=== PATIENT | female | born 1985 | race Caucasian/White ===

== ENCOUNTER 2018-12-01 19:45 | Emergency (ER) | payer SELFPAY ==
--- NOTE | 2018-12-01 21:59 | RADIOLOGY REPORT (SQ) ---
EXAM DESCRIPTION: XR ANKLE 3 OR MORE VIEWS COMPLETED DATE/TME: 12/01/2018 21:10 CLINICAL HISTORY: 33 years Female ,fell down steps two weeks ago with pain laterally and in the region of the Achilles COMPARISON: None. TECHNIQUE: Right ankle, 3 view FINDINGS: No acute fractures or dislocations are identified. No osseous destructive lesions. No ankle joint effusion noted. IMPRESSION: No acute fracture is identified.
[2018-12-01] MEDS ORDERED: HYDROCODONE/ACETAMINOPHEN 5-325 MG (6 TAB/ER DISP) PO PRN (22:05)
--- NOTE | 2018-12-01 22:10 | ER Document Report ---
ED General - General Chief Complaint: Ankle Injury Stated Complaint: RIGHT ANKLE PAIN Time Seen by Provider: 12/01/18 21:54 Mode of Arrival: Ambulatory Information source: Patient TRAVEL OUTSIDE OF THE [place] IN LAST 30 DAYS: No - HPI Patient complains to provider of: Right ankle injury Onset: Just prior to arrival Onset/Duration: Sudden Quality of pain: Sharp Severity: Severe Pain Level: 4 Associated symptoms: None Exacerbated by: Movement, Walking, Other - Weightbearing Relieved by: Denies Similar symptoms previously: No Recently seen / treated by doctor: No Notes: 33-year-old female visiting from out of town here for chief complaint right ankle injury. She is walking up or down some stairs with an infant in her arms and lost her balance and fell down some steps. Complains of sharp pain felt in the lateral aspect of her right ankle. Able to bear weight with a moderate amount of discomfort. No other injuries - Related Data Allergies/Adverse Reactions: No Known Allergies Allergy (Verified 12/01/18 21:51) Past Medical History - General Information source: Patient - Social History Smoking Status: Current Every Day Smoker Chew tobacco use (# tins/day): No Frequency of alcohol use: Occasional Drug Abuse: None Family History: Reviewed & Not Pertinent Patient has suicidal ideation: No Patient has homicidal ideation: No Renal/ Medical History: Denies: Hx Peritoneal Dialysis Review of Systems - Review of Systems Notes: Constitutional: No fevers. No chills. EENT: No eye redness. No eye pain. No ear pain. No sore throat. Cardiovascular: No chest pain. No palpitations. Respiratory: No cough. No shortness of breath. No respiratory distress. Gastrointestinal: No abdominal pain. No nausea, vomiting, or diarrhea. Genitourinary: Atraumatic. No lesions. No pain. No discharge. Musculoskeletal: Positive for right ankle pain Skin: No rash or lesions. Lymphatic: No swollen lymph nodes. Neurologic: No headache. No syncope. Psychiatric: No suicidal or homicidal ideation. Physical Exam - Vital signs Vitals: Temp Pulse Resp BP Pulse Ox 98.6 F 101 H 20 112/65 99 12/01/18 19:52 12/01/18 19:52 12/01/18 19:52 12/01/18 19:52 12/01/18 19:52 - Notes Notes: General: Well-developed, well-nourished. In no acute distress. Non-toxic appearing. Cardiac: Well-perfused. Regular rate and rhythm. No murmurs, rubs, or gallops. Pulmonary: No respiratory distress. No cyanosis. Bilateral lung fiels are clear to auscultation. Abdominal: Non-distended. Non-rigid. Bowels sounds are present in all four quadrants. No guarding or rebound. HEENT: Head is atraumatic. Conjunctivae not reddened. No tearing. PERRL. EOMI. Orbits atraumatic. No periorbital swelling or erythema. Oropharynx is without erythema, swelling, or exudates. Neck: Supple. No adenopathy. No meningismus. Dermatologic: Warm with good turgor. No rash. Atraumatic. Chest: Atraumatic. No chest wall tenderness to palpation. Musculoskeletal: Right lower extremity evaluated. Obvious soft tissue swelling right ankle lateral malleolar surface. Tender to palpate there. No bony deformity. Distal neurovascular exam is intact. Full range of motion in the foot ankle and knee. Genitourinary: Examination deferred Neurologic: No gross neurologic deficits. Psychiatric: Normal mood. Course - Re-evaluation Re-evalutation: 12/01/18 22:07 Plain films read as negative by radiology. Discussed with patient the need for Dat wrap and crutches and follow-up in 1 week if not better. - Vital Signs Vital signs: Temp Pulse Resp BP Pulse Ox 98.6 F 101 H 20 112/65 99 12/01/18 19:52 12/01/18 19:52 12/01/18 19:52 12/01/18 19:52 12/01/18 19:52 Discharge - Discharge Clinical Impression: Ankle sprain Qualifiers: Encounter type: initial encounter Involved ligament of ankle: unspecified ligament Laterality: right Qualified Code(s): S93.401A - Sprain of unspecified ligament of right ankle, initial encounter Condition: Good Disposition: HOME, SELF-CARE Instructions: Dat Wrap ([facility]), Use of Crutches ([facility]), Ice & Elevation ([facility]), Ice Packs ([facility]), Oral Narcotic Medication ([facility]), Sprained Ankle ([facility]) Prescriptions: Naproxen 500 mg PO BID PRN #14 tablet.dr PRN Reason: Referrals: LONNIE WEBER MD [ACTIVE STAFF] - Follow up in 1 week
[2018-12-01 22:32] VITALS: BP 130/78
== END 2018-12-01 22:32 | disposition home or self-care (01) ==
LOC: ER 19:45
DX: S93.401A Sprain of unspecified ligament of right ankle, initial encounter (principal); W10.9XXA Fall (on) (from) unspecified stairs and steps, initial encounter; F17.200 Nicotine dependence, unspecified, uncomplicated
CPT/HCPCS: 99283